=== PATIENT | male | born 1965 | race African-American/Black ===

== ENCOUNTER 2018-02-22 15:38 | Emergency (ER) | payer BC ==
[~2018-02-22] VITALS: Ht 182.9 cm; Wt 83.9 kg
[~2018-02-22 15:38] MED LIST: IBUPROFEN 600600 M1 PO; NORCO 5-325 TA1 EACH PO
[2018-02-22 16:14] LABS: HEMATOCRIT 44.6 % (42.0-52.0); MCH 20.7 pg (26.0-34.0); MCHC 31.5 g/dL (28.0-37.0); MCV 65.6 fL (80.0-100.0); PLATELET COUNT 162 thou/uL (150-400); RBC 6.79 mil/uL (4.50-6.00); RDW 15.2 % (10.5-14.5); WBC 5.9 thou/uL (4.0-11.0)
[2018-02-22 16:20] LABS: ANION GAP 7 mmol/L (7-16); BUN 13 mg/dL (7-18); CALCIUM 9.1 mg/dL (8.5-10.1); CHLORIDE 102 mmol/L (98-107); CO2 30 mmol/L (21-32); CREATININE 1.1 mg/dL (0.7-1.3); GLUCOSE 98 mg/dL (74-106); POTASSIUM 4.1 mmol/L (3.5-5.1); SODIUM 139 mmol/L (136-145)
[2018-02-22 16:29] LABS: ALBUMIN 4.2 g/dL (3.4-5.0); LIPASE 134 U/L (73-393); SGOT 31 U/L (15-37); SGPT 57 U/L (30-65); TOTAL BILIRUBIN 0.5 mg/dL (<0.1-1.0); TOTAL PROTEIN 8.6 g/dL (6.4-8.2); TROPONIN-I <0.06 ng/mL (<0.06)
[2018-02-22 17:03] LABS: ABSOLUTE NEUTROPHILS 3.4 thou/uL (1.4-8.2)
[2018-02-22 17:04] LABS: HYPOCHROMASIA 1+; MICROCYTES 1+
[2018-02-22 17:41] VITALS: BP 126/90
--- NOTE | 2018-02-23 08:17 | EKG ---
[address] [place] [address] ELECTROCARDIOGRAM REPORT Name: RONN HORNE Room #: [facility]P [facility] [id number] Admission: 02/22/18 Attend Phys: Discharge: 02/22/18 Date of : 69 Report #: [id number] THIS REPORT FOR: //name// [facility] ED Test Date: 2018-02-22 Test Time: 16:26:56 Pat Name: RONN HORNE Department: Room: Gender: M First Helper: as : 1965 Requested By: Emerita Roberts Order Number: [id number] MD: Chente Garner Measurements Intervals [place] Rate: 58 P: 19 OR: 148 QRS: -2 QRSD: 85 T: 10 QT: 405 QTc: 398 Interpretive Statements Sinus bradycardia Early repolarization No previous ECG available for comparison Electronically Signed On 02-23-2018 8:16:54 QUALITY TECHNICIAN by Chente Garner [email or web address] <ELECTRONICALLY SIGNED> By: Chente Garner MD, [facility] 02/23/18 0816 1626 1626 Chente Garner MD, FACC /EPI
== END 2018-02-22 17:42 | disposition home or self-care (01) ==
LOC: ER 15:38
PROVIDERS: Nurse Practitioner Family
DX: R07.89 Other chest pain (principal)

== ENCOUNTER 2018-03-02 06:28 | Emergency (ER) | payer BC ==
[~2018-03-02] VITALS: Ht 182.9 cm; Wt 83.9 kg
[2018-03-02 06:54] LABS: HEMATOCRIT 41.4 % (42.0-52.0); HEMOGLOBIN 12.9 gm/dL (14.0-18.0); MCH 20.5 pg (26.0-34.0); MCHC 31.2 g/dL (28.0-37.0); MCV 65.6 fL (80.0-100.0); PLATELET COUNT 143 thou/uL (150-400); RDW 15.5 % (10.5-14.5); WBC 6.6 thou/uL (4.0-11.0)
[2018-03-02 07:04] LABS: ANION GAP 10 mmol/L (7-16); BUN 15 mg/dL (7-18); CALCIUM 8.8 mg/dL (8.5-10.1); CHLORIDE 102 mmol/L (98-107); CO2 26 mmol/L (21-32); CREATININE 1.1 mg/dL (0.7-1.3); GLUCOSE 114 mg/dL (74-106); POTASSIUM 3.9 mmol/L (3.5-5.1); SODIUM 138 mmol/L (136-145)
[2018-03-02 07:12] LABS: TROPONIN-I <0.06 ng/mL (<0.06)
[2018-03-02] MEDS ORDERED: NORCO 5-325 TA1 EACH PO (07:22)
[2018-03-02 08:00] VITALS: BP 130/88
--- NOTE | 2018-03-02 08:03 | EKG ---
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: kenneth : 1965 Requested By: Anisha Velazquez Order Number: [id number] MD: Bartolome Killian Measurements Intervals [place] Rate: 57 P: 29 AL: 166 QRS: -1 QRSD: 88 T: 3 QT: 402 QTc: 392 Interpretive Statements Sinus rhythm Left ventricular hypertrophy Compared to ECG 02/22/2018 16:26:56 Left ventricular hypertrophy now present Sinus bradycardia no longer present Early repolarization no longer present Electronically Signed On 03-02-2018 8:03:36 CLAIM ANALYST by Bartolome Killian [email or web address] <ELECTRONICALLY SIGNED> By: Bartolome Killian MD 03/02/18802 Bartolome Killian MD /KILEY
[2018-03-02 08:52] LABS: ABSOLUTE NEUTROPHILS 3.2 thou/uL (1.4-8.2); ANISOCYTOSIS 1+; PLATELET ESTIMATE NORMAL
[2018-03-02 08:53] LABS: MICROCYTES 2+
== END 2018-03-02 08:00 | disposition home or self-care (01) ==
LOC: ER 06:28
PROVIDERS: Emergency Medicine
DX: R09.1 Pleurisy (principal); R07.89 Other chest pain

== ENCOUNTER 2020-01-27 23:33 | Emergency (ER) | payer BC ==
[~2020-01-27] VITALS: Ht 182.9 cm; Wt 86.2 kg
[2020-01-28] MEDS ORDERED: ZOFRAN ODT4 MG PO (01:27)
[2020-01-28 01:34] VITALS: BP 129/89
== END 2020-01-28 01:37 | disposition home or self-care (01) ==
LOC: ER 23:33
DX: U07.1 COVID-19 (principal); R11.2 Nausea with vomiting, unspecified; Z79.1 Long term (current) use of non-steroidal anti-inflammatories (NSAID); Z79.899 Other long term (current) drug therapy